=== PATIENT | male | born 1995 | race Asian ===

== ENCOUNTER → 2017-01-09 | Outpatient (REF) ==
[~2017-01-09] MED LIST: AMBI6.25 PO; MESAPOW PO; OXYC1TAB55 PO; PERC5TAB6 PO; PROTPAK PO; PROZ20CA11 PO; RANI15TA PO; SUCR1TA PO; TRAZ50TA4 PO
--- NOTE | 2017-01-09 15:03 | REP ---
Clinical: Chest pain . Comparison: None. Technique: PA and lateral. Findings: The mediastinum and cardiac silhouette are normal. The lung tam are clear and without acute consolidation, effusion, or pneumothorax. The skeletal structures are intact and normal. Impression: 1. No acute cardiopulmonary process. Signed by Je Tate MD 01/09/2017 02:54 P
--- NOTE | 2017-01-09 15:11 | REP ---
CERVICAL SPINE, SEVEN VIEWS: HISTORY: Degenerative disc disease. There is no acute fracture. The intervertebral discs are normal in height. The neural foramina are patent. There are 2 mm of anterior subluxation of C3 on 4 and 1.5 mm of C4 on 5 with flexion. This is unchanged with extension. There are 2 mm of anterior subluxation of C5 on 6 with flexion. This is not seen in neutral or extension radiographs. There is loss of the normal lordotic curve. IMPRESSION: Degenerative change as described above. Signed by Philippe Renteria MD 01/09/2017 03:15 P
== END ==
LOC: M SMT 14:27
PROVIDERS: ATTEND Internal Medicine
DX: Z02.71 Encounter for disability determination (principal)

== ENCOUNTER 2017-06-09 11:32 | Emergency (ER) | payer OTHER ==
[~2017-06-09] VITALS: Ht 188 cm; Wt 112.3 kg
[~2017-06-09 11:32] MED LIST changes: +OXYC-403 PO; -OXYC1TAB55 PO; +PERC5TAB12 PO; -PERC5TAB6 PO; +TRAZ50TA11 PO; -TRAZ50TA4 PO
[2017-06-09 11:42] VITALS: BP 138/74
[2017-06-09] MEDS ORDERED: PROP60TA14 PO (11:49)
[2017-06-09] MEDS ORDERED: VITA100067 PO (11:49)
[2017-06-09] MEDS ORDERED: LUNE2TAB23 PO (11:49)
--- NOTE | 2017-06-10 08:56 | ECGEPIP ---
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
== END 2017-06-09 12:41 | disposition home or self-care (01) ==
LOC: M ED 11:32
DX: R07.89 Other chest pain (principal); R00.2 Palpitations; G43.909 Migraine, unspecified, not intractable, without status migrainosus; Z88.0 Allergy status to penicillin; Z88.1 Allergy status to other antibiotic agents; Z88.6 Allergy status to analgesic agent; Z79.899 Other long term (current) drug therapy